=== PATIENT | female | born 1995 | race Caucasian/White ===

== ENCOUNTER 2021-11-18 09:20 | Emergency (ER) | payer SELFPAY ==
[2021-11-18] MEDS ORDERED: Bupivacaine 0.25% 10 ML VIAL ONE (09:29)
[2021-11-18] MEDS ORDERED: Clindamycin 150 MG CAP ONE (09:43)
== END 2021-11-18 10:15 | disposition home or self-care (01) ==
LOC: ERS 09:20
DX: K04.7 Periapical abscess without sinus (principal); F17.210 Nicotine dependence, cigarettes, uncomplicated
CPT/HCPCS: 64400; S0020